=== PATIENT | female | born 1995 | race Caucasian/White ===

== ENCOUNTER → 2017-01-06 | Outpatient (CLI) | payer MEDICAID ==
[~2017-01-06] MED LIST: AUGMENTIN XR1 GM PO; DERMOPLAST SPRA56 GM TP; MOTRIN-DPS800 MG PO; PRENATAL VIT1 TAB PO; TUCKS1 EACH TP; TYLENOL #3 DPS1 TAB PO
== END | disposition home or self-care (01) ==
LOC: RAD.S 15:20
DX: O36.62X0 Maternal care for excessive fetal growth, second trimester, not applicable or unspecified (principal); Z3A.20 20 weeks gestation of pregnancy

== ENCOUNTER → 2017-02-14 | Outpatient (CLI) | payer MEDICAID | END | disposition home or self-care (01) | LOC: RAD.S 16:29 | DX: O36.62X0 Maternal care for excessive fetal growth, second trimester, not applicable or unspecified (principal); Z3A.26 26 weeks gestation of pregnancy ==

== ENCOUNTER 2017-02-26 16:30 | Outpatient (CLI) | payer MEDICAID ==
[~2017-02-26] VITALS: Ht 160 cm; Wt 81.6 kg
== END 2017-02-26 18:40 | disposition home or self-care (01) ==
LOC: BC 16:30 → 2LDRP 17:11 → BC 18:40
DX: O99.89 Other specified diseases and conditions complicating pregnancy, childbirth and the puerperium (principal); R10.2 Pelvic and perineal pain; Z3A.28 28 weeks gestation of pregnancy